=== PATIENT | female | born 1960 | race Caucasian/White ===

== ENCOUNTER → 2017-01-28 | Outpatient (CLI) | payer OTHER ==
--- NOTE | 2017-01-28 20:53 | XCELERA REPORT ---
[address] [address] Transthoracic Echocardiogram Report Name: ROCK SUBRAMANIAN Age: 56 yrs Gender: Female : 1960 Patient Status: Outpatient Patient Location: Study Date: 01/28/2017 11:06 AM Height: 61 in Weight: 140 lb BSA: 1.6 m2 Reason For Study: CHEST PAIN Ordering Physician: DANIELE PEÑA Performed By: Kelly Dickson Interpretation Summary Mild hypokinesis of the inferior wall, with normal LVEF 60%, no LV diastolic dysfunction, and no LV enlargement, and no LVH. Normal MV with no MR, no MS, and no LA enlargement Normal 3 cusps AV, no , no AR. RH normal, no pulm hypertension. MMode/2D Measurements & Calculations RVDd: 3.0 cm LVIDd: 3.9 cm FS: 30.7 % Ao root diam: 3.0 cm IVSd: 0.59 cm LVIDs: 2.7 cm EDV(Teich): 66.9 ml LVPWd: 0.65 cm ESV(Teich): 27.5 ml Ao root area: 6.9 cm2 EF(Teich): 59.0 % LA dimension: 2.7 cm Doppler Measurements & Calculations MV E max stephanie: MV P1/2t max stephanie: Ao V2 max: LV V1 max P.7 cm/sec 63.2 cm/sec 93.5 cm/sec 1.8 mmHg MV A max stephanie: MV P1/2t: 79.8 msec Ao max PG: LV V1 max: 60.2 cm/sec 3.5 mmHg 67.6 cm/sec MV E/A: 1.0 MVA(P1/2t): 2.8 cm2 MV dec slope: 231.8 cm/sec2 PA V2 max: PI end-d stephanie: TR max stephanie: 63.2 cm/sec 93.7 cm/sec 238.9 cm/sec PA max PG: TR max P.6 mmHg 22.8 mmHg Left Ventricle The left ventricle is normal in size. There is normal left ventricular wall thickness. The left ventricular ejection fraction is normal. LV EF is 60%. Doppler measurements suggest normal left ventricular diastolic function. There is inferoseptal wall mild hypokinesis. There is no thrombus. Right Ventricle The right ventricle is normal in size, thickness and function. The right ventricular systolic function is normal. Atria The right atrium is normal. The left atrial size is normal. The interatrial septum is intact with no evidence for an atrial septal defect. Mitral Valve The mitral valve is grossly normal. There is no evidence of mitral valve prolapse. There is no mitral valve stenosis. There is no mitral regurgitation noted. Aortic Valve The aortic valve is trileaflet. The aortic valve opens well. There is no aortic valvular vegetation. There is no aortic valve stenosis. No aortic regurgitation is present. Tricuspid Valve The tricuspid is normal in structure and function. There is no tricuspid valve prolapse. There is no tricuspid stenosis. There is a mild amount of tricuspid regurgitation. Right ventricular systolic pressure is normal. RVSP 26. Pulmonic Valve There is no pulmonic valvular regurgitation. Great Vessels The aortic root is normal size. I WMSI = 1.19 % Normal = 81 Segments Size X - Cannot 2 - 4 - 1-2 small Interpret 1 - Normal Hypokinetic 3 - AkineticDyskinetic 3-5 moderate 5 - 6-14 large Aneurysmal 15-16 diffuse : DANIELE PEÑA > Barrett Austin
== END ==
LOC: SP 10:54
PROVIDERS: ATTEND Family Medicine
DX: R07.9 Chest pain, unspecified (principal)
CPT/HCPCS: 93306